=== PATIENT | female | born 1980 ===

== ENCOUNTER 2019-10-08 09:31 | Outpatient (REF) | payer MEDICAID, SELFPAY ==
--- NOTE | 2019-10-08 08:30 | PAPFT_PTH ---
PATIENT: Xin Jaquez LOC: [facility] U#:[id number] AGE/SX: 39/F ROOM: RE10/08/[address]: KAMARI Jerry : 1980 BED: DIS: 10/08/2019 SPEC #: [id number] RECD: 10/08/19 12:44 STATUS: CHRISTINE REMaría #: [id number] JANEEN: 10/08/19 08:[address]: Mya Gomez DEPT: [facility] Cytology RECD BY: Obdulia Willams ENTERED: 10/08/19 12:45 SP TYPE: PAPFT OTHR DR: Anjana Brand APRN Tissues: 1 - CX/ENDOCX FOR PAP SMEARS Procedures: PAP THIN PREP/UVM Screening HPV DNA PROBE Comments: [id number] (CHLAMYDIA/GC)
[2019-10-09 14:49] LABS: Chlamydia Result Negative (Negative); GC Result Negative (Negative)
== END 2019-10-08 09:51 ==
LOC: LBN 09:31
PROVIDERS: PCP Nurse Practitioner Family; Visit Provider Nurse Practitioner Family
DX: Z11.3 Encounter for screening for infections with a predominantly sexual mode of transmission (principal); Z12.4 Encounter for screening for malignant neoplasm of cervix; Z11.51 Encounter for screening for human papillomavirus (HPV)
CPT/HCPCS: 87491; 87591; 88142; 87624

== ENCOUNTER 2023-01-25 11:46 | Outpatient (REF) | payer MEDICAID, SELFPAY ==
--- NOTE | 2023-01-25 11:30 | PAPFT_PTH ---
PATIENT: Xin Jaquez LOC: [facility] U#:[id number] AGE/SX: 42/F ROOM: RE01/25/[address]: Gladys Collazo NP : 1980 BED: DIS: 01/25/2023 SPEC #: [id number] RECD: 01/25/23 18:14 STATUS: CHRISTINE REQ #: [id number] JANEEN: 01/25/23 11:[address]: Vale REN,Gladys [facility] Cytology RECD BY: Obdulia Willams ENTERED: 01/25/23 18:14 SP TYPE: PAPFT OTHR DR: Anjana Brand APRN Tissues: 1 - CX/ENDOCX FOR PAP SMEARS Procedures: PAP THIN PREP/UVM Screening HPV DNA PROBE Comments: [id number] (CHLAMYDIA/GC)
[2023-01-26 15:34] LABS: Chlamydia Result Negative (Negative); GC Result Negative (Negative)
== END 2023-01-25 11:47 | disposition home or self-care (01) ==
LOC: LBN 11:46
PROVIDERS: PCP Nurse Practitioner Family; Visit Provider Nurse Practitioner Women's Health
DX: Z11.3 Encounter for screening for infections with a predominantly sexual mode of transmission (principal); Z12.4 Encounter for screening for malignant neoplasm of cervix; Z11.51 Encounter for screening for human papillomavirus (HPV)
CPT/HCPCS: 87491; 87591; 88142; 87624

== ENCOUNTER 2023-02-24 03:02 | Outpatient (CLI) | payer MEDICAID, SELFPAY ==
--- NOTE | 2023-02-24 07:45 | DI.MAMMO_ITS ---
Exam(s) MAMMO SCREENING EXAM: MAMMO SCREENING CLINICAL HISTORY: screening. TECHNIQUE: Bilateral full field digital CC and MLO mammographic images were obtained with 3D tomosyn thesis and utilizing computer aided detection (CAD). COMPARISON: None. Baseline FINDINGS: There are no CAD designations. There are no spiculated masses nor malignant appearing microcalcification groups. There is no significant architectural distortion nor skin thickening-retraction. IMPRESSION: No radiographic evidence of malignancy. BI-RADS Category 1 - Negative Breast Density - Category B - Scattered areas of fibroglandular density Breast density Category C or D implies that the patient has dense breast tissue. Dense breast tissue can make it harder to find cancer on a mammogram. Dense breast tissue is also associated with an incr eased risk of breast cancer. This information about the result of the mammogram report was provided to the patient to raise their awareness. Use this report when you speak with the patient about their risks for breast cancer, which includes their family history. At that time, you may recommend additional screening tests (Ultrasoun d or MRI) as these tests may add significant information. A negative radiographic report should not delay biopsy if a dominant or clinically suspicious mass is present. Up to ten percent of cancers are not identified on mammography. A negative report may reinforce clinical impression. Adenosis and dense breasts may obscure an underlying neoplasm. False positive reports average 6 to 10%. Patient will receive a letter notifying them of these results.
== END 2023-02-24 03:22 ==
LOC: DI 03:03
PROVIDERS: PCP Nurse Practitioner Family; Visit Provider Nurse Practitioner Women's Health
DX: Z12.31 Encounter for screening mammogram for malignant neoplasm of breast (principal)
CPT/HCPCS: 77063; 77067

== ENCOUNTER → 2024-04-18 01:04 | Outpatient (CLI) | payer BC, SELFPAY ==
--- NOTE | 2024-04-18 07:45 | DI.MAMMO_ITS ---
Exam(s) MAMMO SCREENING EXAM: MAMMO SCREENING CLINICAL HISTORY: screening TECHNIQUE: Bilateral full field digital CC and MLO mammographic images were obtained with 3D tomosyn thesis and utilizing computer aided detection (CAD). COMPARISON: Available for comparison. FINDINGS: Masses/Architectural Distortion: There is an area of asymmetric breast tissue in the upper central le ft breast on the MLO view. This may represent overlying fibroglandular tissue but a spot compression views requested for further evaluation. Microcalcifications: No suspicious pleomorphic-type are seen. Skin Thickening/Nipple Retraction: None. IMPRESSION: 1. Area of asymmetric breast tissue in the upper central left breast on the MLO view. 2. A spot compression views requested for further evaluation. Ultrasound may be indicated at that grecia e. BI-RADS Category 0 - Incomplete: Need additional imaging evaluation Breast Density - Category B - Scattered areas of fibroglandular density Breast density category C or D implies that the patient has dense breast tissue. Dense breast tissue is very common and is not abnormal but dense breast tissue can make it harder to find cancer on a ma mmogram. Also, dense breast tissue may increase their breast cancer risk. This information about the result of the mammogram report was provided to the patient to raise their awareness. Use this report when you speak with the patient about their risks for breast cancer, which includes their family hist ory. At that time, you may recommend for more screening tests (Ultrasound or MRI) as they might be us eful based on their risk. A negative radiographic report should not delay biopsy if a dominant or clinically suspicious mass is present. Up to ten percent of cancers are not identified on mammography. A negative report may reinforce clinical impression. Adenosis and dense breasts may obscure an underlying neoplasm. False positive reports average 6 to 10%. Patient will receive a letter notifying them of these results.
== END ==
PROVIDERS: PCP Nurse Practitioner Family; Visit Provider Nurse Practitioner Women's Health
DX: Z12.39 Encounter for other screening for malignant neoplasm of breast (principal); Z12.31 Encounter for screening mammogram for malignant neoplasm of breast; R92.8 Other abnormal and inconclusive findings on diagnostic imaging of breast
CPT/HCPCS: 77063; 77067

== ENCOUNTER → 2024-04-20 00:26 | Outpatient (CLI) | payer BC, SELFPAY ==
--- NOTE | 2024-04-20 | DI.MAMMO_ITS ---
Exam(s) MAMMO SCREEN CALL BACK UNI EXAM: MAMMO SCREEN CALL BACK UNI CLINICAL HISTORY: F/U MAMMO, UPPER CENTRAL LT BREAST ASYMMETRIC TISSUE. TECHNIQUE: Craniocaudal and mediolateral oblique Full Field Digital Mammography views of the left br east with Computer Aided Diagnosis. COMPARISON: Comparison is made with prior examinations. FINDINGS: Mammography/Tomosynthesis: Masses/Architectural Distortion: The area of concern does not persist on the additional views. No sanches spicious nodules are seen. No areas of architectural distortion are present. Microcalcifictions: No suspicious pleomorphic-type are seen. Skin Thickening/Nipple Retraction: None. IMPRESSION: 1. No evidence of malignancy is noted. 2. Unless there is more urgent need, follow-up screening mammography is recommended, as per [employer] guidelines. 3. The findings were discussed with the patient on the date of the examination. BI-RADS Category 1 - Negative Breast Density - Category B - Scattered areas of fibroglandular density Breast density Category C or D implies that the patient has dense breast tissue. Dense breast tissue can make it harder to find cancer on a mammogram. Dense breast tissue is also associated with an incr eased risk of breast cancer. This information about the result of the mammogram report was provided to the patient to raise their awareness. Use this report when you speak with the patient about their risks for breast cancer, which includes their family history. At that time, you may recommend additional screening tests (Ultrasoun d or MRI) as these tests may add significant information. A negative radiographic report should not delay biopsy if a dominant or clinically suspicious mass is present. Up to ten percent of cancers are not identified on mammography. A negative report may reinforce clinical impression. Adenosis and dense breasts may obscure an underlying neoplasm. False positive reports average 6 to 10%. Patient will receive a letter notifying them of these results.
--- OUTSIDE RECORDS SUMMARY | 2024-04-20 00:28 | XMS_ITS | Encounter Summary ---
Author Organization [facility] Address [address] [place] [address] Care Team Providers Care Montessori Paraprofessional Name Role Phone Unknown, Provider Primary Care Provider Encounter Details Date Type Department Care Team (Late st Contact Info) Description 04/21/2007 Results Only [facility] - Maple conversion [address] [place] [address] Mya Gomez, [address] [place] [place] [address] Social History Tobacco Use Types Packs/Day Years Used Date Smoking Tobacco: Never Assessed Sex and Gender Information Value Date Recorded Sex Assigned at Not on file Gender Identity Not on file Sexual Orientation Not on file documented as of this encounter Plan of Treatment Not on file documented as of this encounter Procedures Procedure Name Priority Date/Time Associated Diagnosis Comments CYTOPATHOLOGY Routine 04/21/2007 0:00 EDT documented in this encounter Results * CYTOPATHOLOGY (04/21/2007 0:00 EDT) Pathology Report: CYTOPATHOLOGY REPORT Reports generated via electronic interface contain original data; however they are lacking the format of the original report. Caution should be taken when reading/interpreti ng unformatted reports. Name: ? CAROLYNGRICELDAXIN ? Accession #: ? [id number] : ? 1980 (Age: 27) ??F ?Collect Date: ? 04/21/2007 Location: ? [facility] ? Receive Date: ? 04/24/2007 Provider: ?MYA GOMEZ PROTOTYPE CARPENTER Copy to: ? Specimen/Source: ?ThinPrep Pap Test, Cervix/Endocervix, processed on TV Compass ThinPrep Imaging System, with manual evaluation Last Menstrual Period: ? 04/04/07 Hormonal/Contracep tive Status: ? Intrauterine device: Mirena Previous Gynecologic Pathology: ? ASC-US: 09/26 Cannot R/O ARIEL Benign cellular changes: 12/29/00 HPV: 01/25 Treatment History: ? Colposcopy: normal Other: ? Additional clinical information: 01/25, 03, 04 and paps neg HPVA - HPV testing requested if ASC-US on the current ThinPrep Pap test. ? SPECIMEN ADEQUACY ? Satisfactory for Evaluation - transformation zone component present GENERAL CATEGORIZATION ? Negative for Intraepithelial Lesion or Malignancy ? Document reviewed and electronically signed by: ? JOYCE Tejada(ASCP) ? Report Date: ??04/27/2007 14:57 End of Report [facility] 04/21/2007 04/24/2007 Mya Gomez PROTOTYPE CARPENTER PATHOLOGY ORDERABLES [facility] [address] [place] [address] documented in this encounter Visit Diagnoses Not on filedocumented in this encounter Care Teams Montessori Paraprofessional Relationship Specialty Start Date End Date Unknown, Provider, PCP - General 05/02/09 documented as of this encounter
--- OUTSIDE RECORDS SUMMARY | 2024-04-20 00:28 | XMS_ITS | Encounter Summary ---
Author Organization [facility] Address [address] [place] [address] Care Team Providers Care Diesel Technician Name Role Phone Unavailable Primary Care Provider Unavailabl e Encounter Details Date Type Department Care Team (Latest Contact Info) Description 10/01/2002 9:30 EST - 10/01/2002 11:59 EST Hospital Encounter [facility] - Other [address] [place] [id number] Remi Anguiano [address] [place] [address] Unknown, Provider, Discharge Disposition: Auto Discharge Social History Tobacco Use Types Packs/Day Years Used Date Smoking Tobacco: Never Assessed Sex and Gender Information Value Date Recorded Sex Assigned at Not on file Gender Identity Not on file Sexual Orientation Not on file documented as of this encounter Discharge Disposition Disposition Code Departure Means Destination Auto Discharge documented in this encounter Plan of Treatment Not on file documented as of this encounter Visit Diagnoses Not on filedocumented in this encounter
--- OUTSIDE RECORDS SUMMARY | 2024-04-20 00:28 | XMS_ITS | Encounter Summary ---
Author Organization [facility] Address [address] [place] [address] Care Team Providers Care Bowling Ball Molder Name Role Phone Unknown, Provider Primary Care Provider [phone] Encounter Details Date Type Department Care Team (Late st Contact Info) Description 06/19/2012 Results Only [facility] Laboratory Services - [facility] ([facility]) [address] [place], [place] [address] Remi Chaudhary [address] [place], [place] [address] Social History Tobacco Use Types Packs/Day Years Used Date Smoking Tobacco: Never Assessed Sex and Gender Information Value Date Recorded Sex Assigned at Not on file Gender Identity Not on file Sexual Orientation Not on file documented as of this encounter Plan of Treatment Not on file documented as of this encounter Procedures Procedure Name Priority Date/Time Associated Diagnosis Comments PAP TEST- RESULT ONLY Routine 06/19/2012 0:00 EDT documented in this encounter Results * PAP TEST- RESULT ONLY (06/19/2012 0:00 EDT) Pathology Report: CYTOPATHOLOGY REPORT Reports generated via electronic interface contain original data; however they are lacking the format of the original report. Caution should be taken when reading/interpreti ng unformatted reports. Name: ? XIN HERNÁNDEZ ? Accession #: ? [id number] ? : ? 1980 (Age: 32) ??F ?Collect Date: ? 06/19/2012 ? Location: ? [facility] ? Receive Date: ? 06/20/2012 ? Provider: REMI CHAUDHARY [facility] Copy to: OCNNIE FELTON MD ? Final Report SPECIMEN ADEQUACY ? Satisfactory for Evaluation - transformation zone component present - scant squamous epithelial component secondary to excessive blood GENERAL CATEGORIZATION ? Negative for Intraepithelial Lesion or Malignancy INTERPRETATION ? Reactive cellular changes associated with inflammation present (includes repair). Fungal organisms present morphologically consistent with Tita species. Last Menstural Period: 04/23/12 Menstural/Pregnanc y Status: ?? Specimen/Source: ??Pap Test, Cervix/Endocervix, ThinPrep Imaging System with manual evaluation Document reviewed and electronically signed by: ? MEGAN CUMMINGS MD [facility] ? Report ??Date: 06/29/2012 16:21 HPV with Pap Test ? Date Ordered: ? 06/29/2012 ? Status: ?? Signed Out ?Date Complete: ? 07/04/2012 ? By: ??System Interface ? Date Reported: ? 07/04/2012 ? Interpretation RESULT: Negative for HPV. No E6 or E7 mRNA is detected from HPV types 16,18,31,33,35, 39,45,51,52,56,58, 59,66, and 68 by groundhand mediated amplification. Comments Document reviewed and electronically signed by: ? System Interface ? Report date: 07/04/2012 By the signature above, the attending physician certifies that he/she has personally conducted a gross and/or microscopic examination of the described specimens and rendered or confirmed the above diagnosis. End of Report [facility] 06/19/2012 06/20/2012 Remi Chaudhary [facility] PATHOLOGY ORDERABLES Performing Organization Address City/State/[facility] Co de Phone Number [facility] [address] [place] [address] documented in this encounter Visit Diagnoses Not on filedocumented in this encounter Care Teams Bowling Ball Molder Relationship Specialty Start Date End Date Unknown, Provider, PCP - General 05/02/09 documented as of this encounter
--- OUTSIDE RECORDS SUMMARY | 2024-04-20 00:28 | XMS_ITS | Encounter Summary ---
Author Organization [facility] Address [address] [place] [address] Care Team Providers Care Senior Principal Name Role Phone Unknown, Provider Primary Care Provider [phone] Encounter Details Date Type Department Care Team (Late st Contact Info) Description 10/08/2019 Lab Requisition [facility] Pathology & Laboratory Medicine - [address] [address] Mya Gomez, [address] [place] [id number] Encounter for other general examination Social History Tobacco Use Types Packs/Day Years Used Date Smoking Tobacco: Never Assessed Sex and Gender Information Value Date Recorded Sex Assigned at Not on file Gender Identity Not on file Sexual Orientation Not on file documented as of this encounter Plan of Treatment Not on file documented as of this encounter Procedures Procedure Name Priority Date/Time Associated Diagnosis Comments PAP TEST Today 10/08/2019 8:30 EST Encounter for other general examination CHLAMYDIA/N. GONORRHOEAE AMPLIFIED NUCLEIC ACID, THINPREP Today 10/08/2019 8:30 EST HPV DNA DETECTION WITH GENOTYPING, PCR Today 10/08/2019 8:30 EST Encounter for other general examination documented in this encounter Results * HUMAN PAPILLOMAVIRUS (HPV) DETECTION-HIGH RISK TYPES (10/08/2019 8:30 EST) HPV other High Risk types, PCR Negative Negative 10/15/2019 14:55 [facility] Comment:No E6 or E7 mRNA is detected from HPV types 16,18,31,33,35,39,45,51,52,56,58,59,66, and 68 by nicu rn mediated amplification. Papanicolaou smear specimen (specimen) CERVIX UTERI STRUCTURE / Unknown 10/08/2019 8:30 EST 10/12/2019 13:30 EST Mya Gomez MEDICAL SURGERY NURSE MICROBIOLOGY - GENER AL ORDERABLES [facility] [address] [place] [address] * PAP TEST (10/08/2019 8:30 EST) Specimens A. Cervix and/or Endocervix, , ThinPrep Imaging System with Manual Evaluation 10/15/2019 14:55 [facility] Specimen Adequacy Satisfactory for Evaluation - transformation zone component present 10/15/2019 14:55 [facility] General Categorization Negative for intraepithelial lesion or malignancy 10/15/2019 14:55 [facility] Attestation . 10/15/2019 14:55 [facility] at 1455 Clinical History NONE 10/15/19 14:55 [facility] HPV The result for the Human Papillomavirus (HPV) Detection-High Risk Types is Negative. No E6 or E7 mRNA is detected from HPV types 16,18,31,33,35,39 ,45,51,52,56,58,5 9,66, and 68 by nicu rn mediated amplification.Junie ting was performed on specimen [id number] and was resulted on 10/15/2019 1434 EST by NORY, LAB INSTRUMENT RESULTS IN 10/15/2019 14:55 [facility] Scanned Images 10/15/2019 14:55 [facility] Papanicolaou smear specimen (specimen) CERVIX UTERI STRUCTURE / Unknown 10/08/2019 8:30 EST 10/09/2019 11:04 EST Mya BENITES PATHOLOGY ORDERABLES Performing Organization Address City/[facility]/ZIP Co de Phone Number [facility] [address] [place] [address] * CHLAMYDIA/N. GONORRHOEAE AMPLIFIED RNA, THINPREP (10/08/2019 8:30 EST) Neisseria gonorrhoeae Result Negative Negative 10/09/2019 14:45 EST [facility] Chlamydia trachomatis Result Negative Negative 10/09/2019 14:45 EST [facility] Papanicolaou smear specimen (specimen) CERVIX UTERI STRUCTURE / Unknown 10/08/2019 8:30 EST 10/09/2019 7:58 EST Mya GONZALEZP MICROBIOLOGY - GENER AL ORDERABLES Performing Organization Address [facility] Co de Phone Number [facility] [address] [place] [address] documented in this encounter Visit Diagnoses Diagnosis Encounter for other general examination documented in this encounter Care Teams Senior Principal Relationship Specialty Start Date End Date Unknown, Provider, PCP - General 05/02/09 documented as of this encounter
--- OUTSIDE RECORDS SUMMARY | 2024-04-20 00:28 | XMS_ITS | Encounter Summary ---
Author Organization [facility] Address [address] [place] [address] Care Team Providers Care Commercial Energy Auditor Name Role Phone Unknown, Provider Primary Care Provider [phone] Encounter Details Date Type Department Care Team (Late st Contact Info) Description 03/31/2004 Results Only [facility] - Maple conversion [address] [place] [address] Kimmie Gomez, [address] [place] [address] Social History Tobacco Use Types [...] Priority Date/Time Associated Diagnosis Comments CYTOPATHOLOGY Routine 03/31/2004 0:00 EDT documented in this encounter Results * CYTOPATHOLOGY (03/31/2004 0:00 EDT) Pathology Report: CYTOPATHOLOGY REPORT Reports generated via electronic interface contain original data; however they are lacking the format of the original report. Caution should be taken when reading/interpreti ng unformatted reports. Name: ? EDGAR XIN Vegas ? Accession #: ? [id number] : ? 1980 (Age: 24) ??F ?Collect Date: ? 03/31/2004 Location: ? [facility] ? Receive Date: ? 04/01/2004 Provider: ?KIMMIE GOMEZ MOLD DRESSER Copy to: ? Specimen/Source: ?ThinPrep Pap Test, Cervix/Endocervix Last Menstrual Period: ? 03/10/2004 Previous Gynecologic Pathology: ? ASC-US: 09/26 HPV: 09/26 Benign cellular changes: 09/26 Treatment History: ? Colposcopy Other: ? HPVA - HPV testing requested if ASC-US on the current ThinPrep Pap test. ? SPECIMEN ADEQUACY ? Satisfactory for Evaluation - transformation zone component present GENERAL CATEGORIZATION ? Negative for Intraepithelial Lesion or Malignancy ? Document reviewed and electronically signed by: ? JOYCE Miranda(ASCP) ? Report Date: ??04/07/2004 11:02 End of Report [facility] 03/31/2004 04/01/2004 Kimmie Gomez MOLD DRESSER PATHOLOGY ORDERABLES [facility] [address] [place] [address] documented in this encounter Visit Diagnoses Not on filedocumented in this encounter Care Teams Commercial Energy Auditor Relationship Specialty Start Date End Date Unknown, Provider, PCP - General 05/02/09 documented as of this encounter
--- OUTSIDE RECORDS SUMMARY | 2024-04-20 00:28 | XMS_ITS | Encounter Summary ---
Author Organization [facility] Address [address] [place] [address] Care Team Providers Care Reservoir Engineering Manager Name Role Phone Unavailable Primary Care Provider Unavailabl e Encounter Details Date Type Department Care Team (Latest Contact Info) Description 08/11/2005 17:22 [facility] Hospital Encounter [facility] - Other [address] [place] [address] Mya Gomez, [facility] [address] [place] [address] [place] [address] Unknown, Provider, Discharge Disposition: Home or Self Care Social History Tobacco Use Types Packs/Day Years Used Date Smoking Tobacco: Never Assessed Sex and Gender Information Value Date Recorded Sex Assigned at Not on file Gender Identity Not on file Sexual Orientation Not on file documented as of this encounter Discharge Disposition Disposition Code Departure Means Destination Home or Self Care documented in this encounter Plan of Treatment Not on file documented as of this encounter Procedures Procedure Name Priority Date/Time Associated Diagnosis Comments CYTOPATHOLOGY Routine 05/01/2009 0:00 EDT CYTOPATHOLOGY Routine 04/23/2008 0:00 EDT documented in this encounter Results * CYTOPATHOLOGY (05/01/2009 0:00 EDT) Pathology Report: CYTOPATHOLOGY REPORT ? Reports generated via electronic interface contain original data; ? however they are lacking the format of the original report. ? Caution should be taken when reading/interpreti ng unformatted reports. ? Name: ? XIN HERNÁNDEZ ? Accession #: ? [id number] ? : ? 1980 (Age: 29) ??F ?Collect Date: ? 05/01/2009 ? Location: ? [facility] ? Receive Date: ? 05/05/2009 ? Provider: ?BRENDA MARIE CNM ? Copy to: ? Specimen/Source: ?Pap Test, Cervix/Endocervix, ThinPrep Imaging System ? with manual evaluation ? Last Menstrual Period: ? 9/8/08 ? Previous Gynecologic Pathology: ? ASC-US: Cannot R/O ARIEL 1/01 ? Benign cellular changes: 4/5/01 ? HPV: + 5/02 ? Treatment History: ? Colposcopy: Normal ? Other: ? Additional clinical information: Del. 6/9/09 ? HPVA - HPV testing requested if ASC-US on the current ThinPrep Pap test. ? SPECIMEN ADEQUACY ? Satisfactory for Evaluation ? - transformation zone component present ? GENERAL CATEGORIZATION ? Negative for Intraepithelial Lesion or Malignancy ? Document reviewed and electronically signed by: ? Gilmar Astorga, [place](ASCP) ? Report Date: ??05/07/2009 12:11 ? End of Report ? [facility] 05/01/2009 05/05/2009 Brenda Marie [facility] PATHOLOGY ORDERABLES [facility] [address] [place] [address] * CYTOPATHOLOGY (04/23/2008 0:00 EDT) Pathology Report: CYTOPATHOLOGY REPORT ? Reports generated via electronic interface contain original data; ? however they are lacking the format of the original report. ? Caution should be taken when reading/interpreti ng unformatted reports. ? Name: ? XIN JUAREZ ? Accession #: ? [id number] ? : ? 1980 (Age: 28) ??F ?Collect Date: ? 04/23/2008 ? Location: ? [facility] ? Receive Date: ? 04/24/2008 ? Provider: ?MYA KALI SCALE SHOOTER ? Copy to: ? Specimen/Source: ?ThinPrep Pap Test, Cervix/Endocervix, processed on Cytyc ThinPrep Imaging System, with manual evaluation ? Last Menstrual Period: ? spots q 2-3 mths ? Hormonal/Contracep tive Status: ? Intrauterine device: Mirena ? Previous Gynecologic Pathology: ? ASC-US: Cannot R/o ARIEL 01/01 ? Benign cellular changes: 04/05/01 ? HPV: + 05/02 ? Treatment History: ? Colposcopy: normal ? Other: ? HPVA - HPV testing requested if ASC-US on the current ThinPrep Pap test. ? SPECIMEN ADEQUACY ? Satisfactory for Evaluation ? - transformation zone component present ? - scant squamous epithelial component secondary to excessive blood ? GENERAL CATEGORIZATION ? Negative for Intraepithelial Lesion or Malignancy ? Document reviewed and electronically signed by: ? Tamir Lawson, CT(ASCP) ? Report Date: ??04/26/2008 09:31 ? End of Report ? [facility] 04/23/2008 04/24/2008 Mya Gomez SCALE SHOOTER PATHOLOGY ORDERABLES [facility] [address] [place] [address] documented in this encounter Visit Diagnoses Not on filedocumented in this encounter Orders Lab Orders Without Results Count Last Ordered D ate First Ordered Date CYTOPATHOLOGY 1 04/23/2008 documented in this encounter
--- OUTSIDE RECORDS SUMMARY | 2024-04-20 00:28 | XMS_ITS | Encounter Summary ---
Author Organization [facility] Address [address] [place] [address] Care Team Providers Care Utilization Reviewer Name Role Phone Unknown, Provider Primary Care Provider Encounter Details Date Type Department Care Team (Late st Contact Info) Description 05/24/2005 Results Only [facility] - Maple conversion [address] [place] [address] Mya Gomez, [address] [place] [address] Social History Tobacco Use Types [...] Priority Date/Time Associated Diagnosis Comments CYTOPATHOLOGY Routine 05/24/2005 0:00 EDT documented in this encounter Results * CYTOPATHOLOGY (05/24/2005 0:00 EDT) Pathology Report: CYTOPATHOLOGY REPORT Reports generated via electronic interface contain original data; however they are lacking the format of the original report. Caution should be taken when reading/interpreti ng unformatted reports. Name: ? XIN HERNÁNDEZ ? Accession #: ? [id number] : ? 1980 (Age: 25) ??F ?Collect Date: ? 05/24/2005 Location: ? [facility] ? Receive Date: ? 05/26/2005 Provider: ?MYA GOMEZ LINDERMAN OPERATOR Copy to: ? Specimen/Source: ?ThinPrep Pap Test, Cervix/Endocervix, processed on [employer] Measurement (IMMI) ThinPrep Imaging System, with manual evaluation Last Menstrual Period: ? 04/13/05 Menstrual/Pregnanc y Status: ? Other: ? HPVA - HPV testing requested if ASC-US on the current ThinPrep Pap test. ? SPECIMEN ADEQUACY ? Satisfactory for Evaluation - transformation zone component present GENERAL CATEGORIZATION ? Negative for Intraepithelial Lesion or Malignancy ? Document reviewed and electronically signed by: ? COLLEEN Blanchard(ASCP) ? Report Date: ??06/04/2005 10:51 End of Report [facility] 05/24/2005 05/26/2005 Mya Gomez LINDERMAN OPERATOR PATHOLOGY ORDERABLES [facility] [address] [place] [address] documented in this encounter Visit Diagnoses Not on filedocumented in this encounter Care Teams Utilization Reviewer Relationship Specialty Start Date End Date Unknown, Provider, PCP - General 05/02/09 documented as of this encounter
--- OUTSIDE RECORDS SUMMARY | 2024-04-20 00:28 | XMS_ITS | Encounter Summary ---
Author Organization [facility] Address [address] [place] [address] Care Team Providers Care Cattyman Name Role Phone Unknown, Provider Primary Care Provider Encounter Details Date Type Department Care Team (Late st Contact Info) Description 02/06/2002 Results Only [facility] - Maple conversion [address] [place] [address] Mya Gomez, [address] [place] [address] Social History Tobacco Use Types [...] Priority Date/Time Associated Diagnosis Comments CYTOPATHOLOGY Routine 02/06/2002 0:00 EDT documented in this encounter Results * CYTOPATHOLOGY (02/06/2002 0:00 EDT) Pathology Report: CYTOPATHOLOGY REPORT Reports generated via electronic interface contain original data; however they are lacking the format of the original report. Caution should be taken when reading/interpreti ng unformatted reports. Name: ? CAROLYNGRICELDAXIN ? Accession #: ? [id number] : ? 1980 (Age: 21) ??F ?Collect Date: ? 02/06/2002 Location: ? [facility] ? Receive Date: ? 02/08/2002 Provider: ?MYA GOMEZ PUBLIC RELATIONS MANAGER Copy to: ? Specimen/Source: ?ThinPrep Pap Test, Cervix/Endocervix Last Menstrual Period: ? 01/20/02 Hormonal/Contracep tive Status: ? Oral contraceptives Previous Gynecologic Pathology: ? ASC-US: 09/26 HPV: dna + Benign cellular changes: 12/25 Treatment History: ? Colposcopy: normal ? SPECIMEN ADEQUACY ? Satisfactory for Evaluation - transformation zone component present GENERAL CATEGORIZATION ? Negative for Intraepithelial Lesion or Malignancy ? Document reviewed and electronically signed by: ? JOYCE Johnson(ASCP) ? Report Date: ??02/12/2002 13:21 End of Report [facility] 02/06/2002 02/08/2002 Mya Gomez PUBLIC RELATIONS MANAGER PATHOLOGY ORDERABLES [facility] [address] [place] [address] documented in this encounter Visit Diagnoses Not on filedocumented in this encounter Care Teams Cattyman Relationship Specialty Start Date End Date Unknown, Provider, PCP - General 05/02/09 documented as of this encounter
--- OUTSIDE RECORDS SUMMARY | 2024-04-20 00:28 | XMS_ITS | Encounter Summary ---
Author Organization [facility] Address [address] [place] [address] Care Team Providers Care Melter Loader Name Role Phone Unknown, Provider Primary Care Provider Encounter Details Date Type Department Care Team (Late st Contact Info) Description 10/25/2000 Results Only [facility] - Maple conversion [address] [place] [address] Mya Gomez, [address] [place] [address] Social History Tobacco Use Types [...] Priority Date/Time Associated Diagnosis Comments CYTOPATHOLOGY Routine 10/25/2000 0:00 EST documented in this encounter Results * CYTOPATHOLOGY (10/25/2000 0:00 EST) Pathology Report: CYTOPATHOLOGY REPORT Reports generated via electronic interface contain original data; however they are lacking the format of the original report. Caution should be taken when reading/interpreti ng unformatted reports. Name: ? XIN HERNÁNDEZ Shasta ? Accession #: ? [id number] : ? 1980 (Age: 20) ??F ?Collect Date: ? 10/25/2000 Location: ? [facility] ? Receive Date: ? 10/27/2000 Provider: ?MYA GOMEZ TRAVEL MANAGER Copy to: ? Specimen/Source: ?ThinPrep Pap Test, Cervix/Endocervix Last Menstrual Period: ? 10/05/00 Hormonal/Contracep tive Status: ? Oral contraceptives ? SPECIMEN ADEQUACY ? Satisfactory for evaluation. GENERAL CATEGORIZATION ? Epithelial Cell Abnormality DESCRIPTIVE DIAGNOSIS ? Atypical squamous cells of undetermined significance (ASCUS), cannot rule out squamous intraepithelial lesion (ARIEL). RECOMMENDATION ? Recommend clinical correlation and further evaluation, as clinically indicated. ? Document reviewed and electronically signed by: ? TRACI MAHER MD ? Report Date: ??11/04/2000 12:18 End of Report [facility] 10/25/2000 10/27/2000 Mya Gomez TRAVEL MANAGER PATHOLOGY ORDERABLES Performing Organization Address City/State/[facility] Co de Phone Number [facility] [address] [place] [address] documented in this encounter Visit Diagnoses Not on filedocumented in this encounter Care Teams Melter Loader Relationship Specialty Start Date End Date Unknown, Provider, PCP - General 05/02/09 documented as of this encounter
--- OUTSIDE RECORDS SUMMARY | 2024-04-20 00:28 | XMS_ITS | Clinical Summary ---
Author Organization [facility] Address [address] [place] [address] Care Team Providers Care Wire Temperer Name Role Phone Unknown, Provider Primary Care Provider [phone] Social History Tobacco Use Types Packs/Day Years Used Date Smoking Tobacco: Never Assessed Sex and Gender Information Value Date Recorded Sex Assigned at Not on file Gender Identity Not on file Sexual Orientation Not on file Plan of Treatment Health Maintenance Due Date Last Done Comments Hepatitis C Screen 1980 Hepatitis B Vaccine (1 of 3 - 19+ 3-dose series) 02/21 COVID-19 Vaccine ( season) 2023 Care Teams Wire Temperer Relationship Specialty Start Date End Date Unknown, Provider, PCP - General 05/02/09
--- OUTSIDE RECORDS SUMMARY | 2024-04-20 00:28 | XMS_ITS | Encounter Summary ---
Author Organization [facility] Address [address] [place] [address] Care Team Providers Care Senior Dynamics Crm Developer Name Role Phone Unknown, Provider Primary Care Provider Encounter Details Date Type Department Care Team (Late st Contact Info) Description 12/28/2012 Results Only [facility] - [facility] ([facility] [address] [place], [place] [address] Renetta Gong MD [address] [place] [address] [address] [place] [address] Social History Tobacco Use Types Packs/Day Years Used Date Smoking Tobacco: Never Assessed Sex and Gender Information Value Date Recorded Sex Assigned at Not on file Gender Identity Not on file Sexual Orientation Not on file documented as of this encounter Plan of Treatment Not on file documented as of this encounter Procedures Procedure Name Priority Date/Time Associated Diagnosis Comments SURGICAL PATHOLOGY Routine 12/28/2012 16 :25 EDT documented in this encounter Results * SURGICAL PATHOLOGY (12/28/2012 16:25 EDT) Pathology Report: SURGICAL PATHOLOGY REPORT Reports generated via electronic interface contain original data; however they are lacking the format of the original report. Caution should be taken when reading/interpreti ng unformatted reports. Name: ? XIN HERNÁNDEZ ? Accession #: ? [id number] ? : ? 1980 (Age: 32) ??F ? Collect Date: ? 12/28/2012 ? Location: ? [facility] ? Receive Date: ? 12/28/2012 ? Provider: RENETTA GONG MD Copy to: CONNIE FELTON MD ? Final Pathologic Diagnosis: A. ?Fallopian tube, left, sterilization: 1. ?Portion of fallopian tube with full cross section represented. B. ?Fallopian tube, right, sterilization: 1. ?Portion of fallopian tube with full cross section represented. Document reviewed and electronically signed by: AMPARO CEBALLOS MD Report ??Date: 01/01/2013 17:56 By the signature above, the attending physician certifies that he/she has personally conducted a gross and/or microscopic examination of the described specimens and rendered or confirmed the above diagnosis. Specimen(s) Received: A. ?Portion left fallopian tube B. ? Portion Rt fallopian tube Clinical History: ? Desires permanent sterilization Gross Description: ? Received in formalin labelled Tanja Hernándezdith and portion left fallopian tube is a 1.2 cm in length by 0.7 cm in diameter tubular soft tissue consistent with fallopian tube. ??The serosa is kohler-purple and smooth. ??The cut surface is kohler-white with pinpoint lumen. ??A brand representative section is submitted in cassette (A1). Received in formalin labelled Tanja Hernándezdith and portion right fallopian tube is a 1.7 cm in length by 0.8 cm in diameter tubular soft tissue consistent with fallopian tube. ??The serosa is kohler-purple and smooth. ??A brand representative section is submitted in cassette (B1). ??(Amador Hillman)/[facility] End of Report [facility] 12/28/2012 16:2 5 EDT 12/28/2012 16:25 EDT Renetta Gong MD PATHOLOGY ORDERABLES Performing Organization Address City/State/[facility] Co de Phone Number [facility] [address] [place] [address] documented in this encounter Visit Diagnoses Not on filedocumented in this encounter Care Teams Senior Dynamics Crm Developer Relationship Specialty Start Date End Date Unknown, Provider, PCP - General 05/02/09 documented as of this encounter
--- OUTSIDE RECORDS SUMMARY | 2024-04-20 00:28 | XMS_ITS | Encounter Summary ---
Author Organization [facility] Address [address] [place] [address] Care Team Providers Care Check Processing Clerk Name Role Phone Unknown, Provider Primary Care Provider [phone] Encounter Details Date Type Department Care Team (Late st Contact Info) Description 04/08/2003 Results Only [facility] - Maple conversion [address] [place] [address] Remi Chaudhary CNM [address] [place], [place] [address] Social History Tobacco Use Types Packs/Day Years Used Date Smoking Tobacco: Never Assessed Sex and Gender Information Value Date Recorded Sex Assigned at Not on file Gender Identity Not on file Sexual Orientation Not on file documented as of this encounter Plan of Treatment Not on file documented as of this encounter Procedures Procedure Name Priority Date/Time Associated Diagnosis Comments CYTOPATHOLOGY Routine 04/08/2003 0:00 EDT documented in this encounter Results * CYTOPATHOLOGY (04/08/2003 0:00 EDT) Pathology Report: CYTOPATHOLOGY REPORT Reports generated via electronic interface contain original data; however they are lacking the format of the original report. Caution should be taken when reading/interpreti ng unformatted reports. Name: ? XIN HERNÁNDEZ ? Accession #: ? [id number] : ? 1980 (Age: 23) ??F ?Collect Date: ? 04/08/2003 Location: ? [facility] ? Receive Date: ? 04/10/2003 Provider: ?ANEMiki CHAUDHARY CNM Copy to: ? Specimen/Source: ?ThinPrep Pap Test, Cervix/Endocervix Last Menstrual Period: ? 05/08/02 Menstrual/Pregnanc y Status: ? Post Previous Gynecologic Pathology: ? ASC-US: 09/26 HPV: 09/26 Benign cellular changes: 12/25 Treatment History: ? Colposcopy: Normal Other: ? HPVA - HPV testing requested if ASC-US on the current ThinPrep Pap test. ? SPECIMEN ADEQUACY ? Satisfactory for Evaluation - transformation zone component present GENERAL CATEGORIZATION ? Negative for Intraepithelial Lesion or Malignancy ? Document reviewed and electronically signed by: ? JOYCE Johnson(ASCP) ? Report Date: ??04/11/2003 16:16 End of Report [facility] 04/08/2003 04/10/2003 Anemiki Chaudhary CNM PATHOLOGY ORDERABLES [facility] [address] [place] [address] documented in this encounter Visit Diagnoses Not on filedocumented in this encounter Care Teams Check Processing Clerk Relationship Specialty Start Date End Date Unknown, Provider, PCP - General 05/02/09 documented as of this encounter
--- OUTSIDE RECORDS SUMMARY | 2024-04-20 00:28 | XMS_ITS | Encounter Summary ---
Author Organization [facility] Address [address] [place] [address] Care Team Providers Care Manager Banking Name Role Phone Unknown, Provider Primary Care Provider [phone] Encounter Details Date Type Department Care Team (Late st Contact Info) Description 12/29/2000 Results Only [facility] - Maple conversion [address] [place] [address] Mario Stacy MD [address] [place] [address] [address] [place] [phone] Social History Tobacco Use Types Packs/Day Years Used Date Smoking Tobacco: Never Assessed Sex and Gender Information Value Date Recorded Sex Assigned at Not on file Gender Identity Not on file Sexual Orientation Not on file documented as of this encounter Plan of Treatment Not on file documented as of this encounter Procedures Procedure Name Priority Date/Time Associated Diagnosis Comments HPV DETECTION, HIGH RISK TYPES Routine 12/29/2000 14:30 EDT CYTOPATHOLOGY Routine 12/29/2000 0:00 EDT documented in this encounter Results * HUMAN PAPILLOMA VIRUS DNA TEST (12/29/2000 14:30 EDT) Specimen Description Cervix, ThinPrep vial [facility] Result Positive for one or more of HPV types 16,18,31,33,35 ,39,45,51,52,5 6,58,59, or 68. These high/intermedi ate risk HPV types are associated with dysplasia and some cervical cancers. Positive for one or more of HPV types 6,11,42,43, or 44. These low riskHPV types are usually associated with benign conditions. [facility] Report Status Final [id number] [facility] 12/29/2000 14:3 0 EDT 01/02/2001 7:30 EDT Mario Stacy MD MICROBIOLOGY - GENER AL ORDERABLES [facility] [address] [place] [address] * CYTOPATHOLOGY (12/29/2000 0:00 EDT) Pathology Report: CYTOPATHOLOGY REPORT Reports generated via electronic interface contain original data; however they are lacking the format of the original report. Caution should be taken when reading/interpreti ng unformatted reports. Name: ? XIN HERNÁNDEZ ? Accession #: ? [id number] : ? 1980 (Age: 20) ??F ?Collect Date: ? 12/29/2000 Location: ? [facility] ? Receive Date: ? 01/02/2001 Provider: ?MARIO STACY MD Copy to: ? Specimen/Source: ?ThinPrep Pap Test, Cervix/Endocervix Last Menstrual Period: ? 12/21/00 Hormonal/Contracep tive Status: ? Control Pills Previous Gynecologic Pathology: ? ASC-US: 09/26 Other: ? Colposcopy Pap and/or biopsy in progress HPVDX - HPV testing requested regardless of diagnosis on current ThinPrep Pap test. Additional clinical information: Nl colpo today ? SPECIMEN ADEQUACY ? Satisfactory for evaluation but limited by scant squamous epithelial component secondary to excessive inflammation. GENERAL CATEGORIZATION ? Benign Cellular Changes DESCRIPTIVE DIAGNOSIS ? Predominance of coccobacilli present consistent with shift in vaginal gurdeep. ? Document reviewed and electronically signed by: ? MEGAN CUMMINGS MD [facility] ? Report Date: ??01/03/2001 17:14 End of Report [facility] 12/29/2000 01/02/2001 Mario Stacy MD PATHOLOGY ORDERABLES [facility] [address] [place] [address] documented in this encounter Visit Diagnoses Not on filedocumented in this encounter Care Teams Manager Banking Relationship Specialty Start Date End Date Unknown, Provider, PCP - General 05/02/09 documented as of this encounter
--- OUTSIDE RECORDS SUMMARY | 2024-04-20 00:28 | XMS_ITS | Encounter Summary ---
Author Organization Health system Address [address] [place] [address] Care Team Providers Care Egg Factory Worker Name Role Phone Unknown, Provider Primary Care Provider Encounter Details Date Type Department Care Team (Late st Contact Info) Description 01/25/2023 Lab Requisition [facility] Pathology & Laboratory Medicine - [address] [address] Gladys Collazo, VP PATIENT [address] [place] [address] Encounter for other general examination Social History [...] Date/Time Associated Diagnosis Comments PAP TEST Today 01/25/2023 11:30 EDT Encounter for other general examination CHLAMYDIA/N. GONORRHOEAE AMPLIFIED NUCLEIC ACID, THINPREP Today 01/25/2023 11:30 EDT HPV DNA DETECTION WITH GENOTYPING, PCR Today 01/25/2023 11:30 EDT Encounter for other general examination documented in this encounter Results * HUMAN PAPILLOMAVIRUS (HPV) DETECTION-HIGH RISK TYPES (01/25/2023 11:30 EDT) HPV other High Risk types, PCR Negative Negative 02/02/2023 16:17 EDT [facility] Comment:No E6 or E7 mRNA is detected from HPV types 16,18,31,33,35,39,45,51,52,56,58,59,66, and 68 by service promoter salesperson mediated amplification. Papanicolaou smear specimen (specimen) CERVIX UTERI STRUCTURE / Unknown 01/25/2023 11:30 EDT 02/01/2023 14:29 EDT Gladys Collazo APRN MICROBIOLOGY - GE NERAL ORDERABLES [facility] [address] [place] [address] * PAP TEST (01/25/2023 11:30 EDT) Specimens A. Cervix and/or Endocervix , ThinPrep Imaging System with Manual Evaluation 02/02/2023 16:17 [facility] Specimen Adequacy Satisfactory for Evaluation - transformation zone component present 02/02/2023 16:17 [facility] General Categorization Negative for intraepithelial lesion or malignancy 02/02/2023 16:17 [facility] Attestation . 02/02/2023 16:17 [facility] at 1617 Clinical History See below 02/03/20 23 16:17 [facility] HPV The result for the Human Papillomavirus (HPV) Detection-High Risk Types is Negative. No E6 or E7 mRNA is detected from HPV types 16,18,31,33,35,39 ,45,51,52,56,58,5 9,66, and 68 by service promoter salesperson mediated amplification.Junie ting was performed on specimen [id number] and was resulted on 02/02/2023 1617 EDT by NORY, LAB INSTRUMENT RESULTS IN 02/02/2023 16:17 T [facility] Performing Lab [facility] 02/02/2023 16:17 T [facility] Scanned Images 02/02/2023 16:17 EDT [facility] Papanicolaou smear specimen (specimen) CERVIX UTERI STRUCTURE / Unknown 01/25/2023 11:30 EDT 01/27/2023 9:20 EDT Gladys Collazo VP PATIENT PATHOLOGY ORDERAB LES Performing Organization Address [facility] Co de Phone Number [facility] [address] [place] [address] * CHLAMYDIA/N. GONORRHOEAE AMPLIFIED RNA, THINPREP (01/25/2023 11:30 EDT) Neisseria gonorrhoeae Result Negative Negative 01/26/2023 15:30 EDT [facility] Chlamydia trachomatis Result Negative Negative 01/26/2023 15:30 EDT [facility] Papanicolaou smear specimen (specimen) CERVIX UTERI STRUCTURE / Unknown 01/25/2023 11:30 EDT 01/26/2023 10:38 EDT Gladys Collazo VP PATIENT MICROBIOLOGY - GE NERAL ORDERABLES Performing Organization Address City/[facility] Co de Phone Number [facility] [address] [place] [phone] documented in this encounter Visit Diagnoses Diagnosis Encounter for other general examination documented in this encounter Care Teams Egg Factory Worker Relationship Specialty Start Date End Date Unknown, Provider, PCP - General 05/02/09 documented as of this encounter
--- OUTSIDE RECORDS SUMMARY | 2024-04-20 00:28 | XMS_ITS | Encounter Summary ---
Author Organization [facility] Address [address] [place] [address] Care Team Providers Care Consultant Electronics Name Role Phone Unknown, Provider Primary Care Provider Encounter Details Date Type Department Care Team (Late st Contact Info) Description 05/14/2010 Results Only [facility] Laboratory Services - [facility] [address] [place], [place] [id number] Mya Gomez, [facility] [address] [place] [phone] Social History Tobacco Use Types Packs/Day Years Used Date Smoking Tobacco: Never Assessed Sex and Gender Information Value Date Recorded Sex Assigned at Not on file Gender Identity Not on file Sexual Orientation Not on file documented as of this encounter Plan of Treatment Not on file documented as of this encounter Procedures Procedure Name Priority Date/Time Associated Diagnosis Comments CYTOPATHOLOGY Routine 05/14/2010 0:00 EDT documented in this encounter Results * CYTOPATHOLOGY (05/14/2010 0:00 EDT) Pathology Report: CYTOPATHOLOGY REPORT ? Reports generated via electronic interface contain original data; ? however they are lacking the format of the original report. ? Caution should be taken when reading/interpreti ng unformatted reports. ? Name: ? XIN HERNÁNDEZ B ? Accession #: ? [id number] ? : ? 1980 (Age: 30) ??F ?Collect Date: ? 05/14/2010 ? Location: ? [facility] ? Receive Date: ? 05/15/2010 ? Provider: ?MYA KALI RELOCATION MANAGER ? Copy to: ? Specimen/Source: ?Pap Test, Cervix/Endocervix, ThinPrep Imaging System ? with manual evaluation ? Last Menstrual Period: ? Hormonal/Contracep tive Status: ? Intrauterine device: Mirena ? Previous Gynecologic Pathology: ? ASC-US: Cannot R/o ARIEL 01/01 ? Benign cellular changes: 04/01 ? HPV: + 04/01 ? Treatment History: ? Colposcopy: normal ? Other: ? Additional clinical information: 05/02 pap neg., paps neg. since ? HPVA - HPV testing requested if ASC-US on the current ThinPrep Pap test. ? SPECIMEN ADEQUACY ? Satisfactory for Evaluation ? - transformation zone component present ? GENERAL CATEGORIZATION ? Negative for Intraepithelial Lesion or Malignancy ? INTERPRETATION ? Reactive cellular changes associated with inflammation present (includes ?? repair). ? Fungal organisms present morphologically consistent with Tita species. ? Document reviewed and electronically signed by: ? Estefany L. Hurtado, MD ? Report Date: ??05/20/2010 13:26 ? End of Report ? [facility] 05/14/2010 05/15/2010 Mya Gomez RELOCATION MANAGER PATHOLOGY ORDERABLES Performing Organization Address City/State/[facility] Co de Phone Number [facility] [address] [place] [address] documented in this encounter Visit Diagnoses Not on filedocumented in this encounter Care Teams Consultant Electronics Relationship Specialty Start Date End Date Unknown, Provider, PCP - General 05/02/09 documented as of this encounter
--- OUTSIDE RECORDS SUMMARY | 2024-04-20 00:28 | XMS_ITS | Referral Summary ---
Author Organization [facility] Address [address] [place] [id number] Care Team Providers Care Elementary Ell Teacher Name Role Phone Unknown, Provider Primary Care Provider Social History Tobacco Use Types Packs/Day Years Used Date Smoking Tobacco: Never Assessed Sex and Gender Information Value Date Recorded Sex Assigned at Not on file Gender Identity Not on file Sexual Orientation Not on file Plan of Treatment Not on file Care Teams Elementary Ell Teacher Relationship Specialty Start Date End Date Unknown, Provider, PCP - General 05/02/09
--- OUTSIDE RECORDS SUMMARY | 2024-04-20 00:28 | XMS_ITS | Encounter Summary ---
Author Organization [facility] Address [address] [place] [address] Care Team Providers Care Editor Name Role Phone Unknown, Provider Primary Care Provider Encounter Details Date Type Department Care Team (Late st Contact Info) Description 10/26/1999 Results Only [facility] [address] [place] [address] Mya Gomez, [address] [place] [address] Social History Tobacco Use Types [...] Priority Date/Time Associated Diagnosis Comments CYTOPATHOLOGY Routine 10/26/1999 13:20 EST documented in this encounter Results * CYTOPATHOLOGY (10/26/1999 13:20 EST) Pathology Report: CYTOPATHOLOGY REPORT Reports generated via electronic interface contain original data; however they are lacking the format of the original report. Caution should be taken when reading/interpreti ng unformatted reports. Name: ? XIN HERNÁNDEZ [place] ? Accession #: ? [id number] : ? 1980 (Age: 19) ??F ?Collect Date: ? 10/26/1999 Location: ?Receive Date: ? 10/26/1999 Provider: ?MYA KALI NURSE OBGYN Copy to: ?MYA KALI NURSE OBGYN ? Specimen/Source: ?Ad Terminal Makeup Operator ThinPrep Last Menstrual Period: ? GYNECOLOGIC ??CYTOPATHOLOGY ??REPORT Name: JESSICA JUAREZJOSE LUIS [place] ? [facility] : 1980 ?? 19Y F ?Client ID: [id number] SS#: [id number] ? Clinician: KALI NURSE OBGYN, MYA ?? Location: [facility] ??Copy to: ?? Specimen: ?Ad Terminal Makeup Operator ThinPrep ? Source: Cervix/Endocervix ?Collected: 10/23/99 ? Received: 10/26/1999 ?LMP: 10/10/99 ? Hormone Therapy: No ? : No ? Radiation Therapy: No ?? Post : No ?Chemotherapy: No ?IUD: No ? Prev Abnormal Pap: No ?? Clinical Hx: 1st pap ?(Blank bartholomew indicate information not provided on requisition) SPECIMEN ADEQUACY: ? Satisfactory For Evaluation ?? GENERAL CATEGORIZATION: ? WITHIN NORMAL LIMITS ? Reviewed And Electronically Signed By: ? Stevie Mcgarry Jr., CT(ASCP) ? Report Date: ?? 10/26/1999 Mobile System 7quest Archived Tests - Final Diagnosis Text Field: Clinical History : ;1st pap ? Document reviewed and electronically signed by: ? Conversion ? Report Date: ??10/26/1999 00:00 End of Report [facility] 10/26/1999 13:2 0 EST 10/26/1999 13:21 EST Mya Gomez NURSE OBGYN PATHOLOGY ORDERABLES Performing Organization Address City/State/[facility] Co de Phone Number [facility] [address] [place] [address] documented in this encounter Visit Diagnoses Not on filedocumented in this encounter Care Teams Editor Relationship Specialty Start Date End Date Unknown, Provider, PCP - General 05/02/09 documented as of this encounter
== END ==
PROVIDERS: PCP Nurse Practitioner Family; Visit Provider Nurse Practitioner Women's Health
DX: R92.8 Other abnormal and inconclusive findings on diagnostic imaging of breast (principal)
CPT/HCPCS: 77063; 77067

== ENCOUNTER 2025-05-07 00:55 | Outpatient (CLI) | payer BC, SELFPAY ==
--- NOTE | 2025-05-07 08:42 | DI.MAMMO_ITS ---
Exam(s) MAMMO SCREENING EXAM: MAMMO SCREENING CLINICAL HISTORY: screening TECHNIQUE: Mammograms were interpreted according to the usual protocol including computer analysis with CAD system, tomosynthesis and C-view imaging. COMPARISON: 2022 and 2023 FINDINGS: The breasts are composed of scattered fibroglandular densities, Breast Density category B. No suspicious masses or suspicious microcalcifications are seen. No skin thickening or abnormal axillary lymph nodes are seen. There has been no significant change from prior exams. IMPRESSION: BI-RADS Category 1, Negative mammogram Yearly screening mammography is recommended. Breast Density - Category B - There are scattered areas of fibroglandular density. Breast density Category C or D implies that the patient has dense breast tissue. Dense breast tissue can make it harder to find cancer on a mammogram. Dense breast tissue is also associated with an increased risk of breast cancer. This information about the result of the mammogram report was provided to the patient to raise their awareness. Use this report when you speak with the patient about their risks for breast cancer, which includes their family history. At that time, you may recommend additional screening tests (Ultrasound or MRI) as these tests may add significant information. A negative radiographic report should not delay biopsy if a dominant or clinically suspicious mass is present. Up to ten percent of cancers are not identified on mammography. A negative report may reinforce clinical impression. Adenosis and dense breasts may obscure an underlying neoplasm. False positive reports average 6 to 10%. Patient will receive a letter notifying them of these results.
== END 2025-05-07 01:15 ==
LOC: DI 00:55
PROVIDERS: PCP Nurse Practitioner Family; Visit Provider Nurse Practitioner Women's Health
DX: Z12.31 Encounter for screening mammogram for malignant neoplasm of breast (principal); R92.323 Mammographic fibroglandular density, bilateral breasts
CPT/HCPCS: 77063; 77067

== ENCOUNTER 2025-08-19 11:15 | Outpatient (REF) | payer BC, OTHER, SELFPAY ==
[2025-08-19 17:24] LABS: Cholesterol 252 mg/dL (<200); HDL Cholesterol 52 mg/dL (>40)
[2025-08-19 17:28] LABS: Hemoglobin A1C 4.8 % (<5.7)
== END 2025-08-19 11:16 | disposition home or self-care (01) ==
LOC: NCHCN 11:15
PROVIDERS: PCP Nurse Practitioner Family
DX: Z13.1 Encounter for screening for diabetes mellitus (principal); Z13.6 Encounter for screening for cardiovascular disorders
CPT/HCPCS: 80061; 83036